=== PATIENT | female | born 1980 | race Caucasian/White ===

== ENCOUNTER → 2020-07-08 | Outpatient (CLI) | payer OTHER ==
[~2020-07-08] MED LIST: DIFLUCAN200 MG PO; FLOMAX0.4 MG PO; LEVOTHYROXINE100 MC1 PO; NORCO 5-325 TA1 EACH PO; TRAMADOL 50 MG50 MG PO; [UNRECOGNIZED DRUG - OTHER] PO
== END ==
LOC: M.ULTRA 11:06
PROVIDERS: ATTEND Nurse Practitioner Family
DX: M79.661 Pain in right lower leg (principal); M79.662 Pain in left lower leg